=== PATIENT | male | born 1960 | race Caucasian/White ===

== ENCOUNTER → 2019-12-22 | Outpatient (CLI) | payer OTHER ==
--- NOTE | 2019-12-22 16:32 | RAD ---
CT brain without contrast. HISTORY: Acute posttraumatic headache CT scan of the brain was done without contrast. Sinuses are clear. A skull fracture is not identified. There is no mass or shift of the midline. Ventricles are normal in size. An acute CVA is not identified. There is mild decreased density in the white matter. There is no intracranial hemorrhage or subdural hematoma. IMPRESSION: 1. No intracranial hemorrhage or acute finding noted. PQRS Compliance Statement: One or more of the following individualized dose reduction techniques were utilized for this examination: 1. Automated exposure control 2. Adjustment of the mA and/or kV according to patient size 3. Use of iterative reconstruction technique Electronically signed by: Lázaro Rich MD (12/22/2019 4:30 PM) [id number]
== END | disposition home or self-care (01) ==
LOC: CT 16:08
PROVIDERS: ATTEND Preventive Medicine Occupational Medicine
DX: G44.319 Acute post-traumatic headache, not intractable (principal)
CPT/HCPCS: 70450